=== PATIENT | female | born 1970 | race Caucasian/White ===

== ENCOUNTER → 2019-07-12 | Outpatient (CLI) | payer OTHER | END | disposition home or self-care (01) | LOC: CFH 14:59 | PROVIDERS: ATTEND Obstetrics & Gynecology | DX: Z12.31 Encounter for screening mammogram for malignant neoplasm of breast (principal) | CPT/HCPCS: 77067 ==

== ENCOUNTER 2019-12-28 10:41 | Emergency (ER) | payer OTHER ==
[~2019-12-28] VITALS: Ht 152.4 cm; Wt 71.8 kg
[2019-12-28 11:03] VITALS: BP 135/92
--- NOTE | 2019-12-28 11:08 | NUR ---
STUFFY NOSE AND DRY COUGH SINCE YESTERDAY AM, KNOWN COVID +, IN TRIAGE, PT SWABBED FOR COVID
--- NOTE | 2019-12-28 11:08 | NUR ---
PT DISCHARGED FROM TRIAGE
== END 2019-12-28 11:28 | disposition home or self-care (01) ==
LOC: ED 11:26
DX: U07.1 COVID-19 (principal); R05 Cough
CPT/HCPCS: 99283; U0001